=== PATIENT | male | born 1975 | race African-American/Black ===

== ENCOUNTER 2018-07-15 07:00 | Emergency (ER) | payer OTHER ==
[~2018-07-15] VITALS: Ht 182.9 cm; Wt 81.6 kg
[2018-07-15 07:04] VITALS: BP 163/75
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
[2018-07-15] MEDS ORDERED: Augmentin 875mg Tab ORAL ONE (07:15)
[2018-07-15] MEDS ORDERED: Tetanus/Diptheria/Pertussis IM ONE (07:15)
[2018-07-15] MEDS ORDERED: HYDROcodone/Acetamin 5/325 tab PO ONE (07:15)
[2018-07-15] MEDS ORDERED: Bacitracin Oint UD TOPIC ONE (07:15)
--- NOTE | 2018-07-15 08:00 | NUR ---
ED Nurse Note: RIGHT 3RD DIGIT WAS CLEANED, BACITRICIN AND DRY DRESSING APPLIED PER 'S ORDER.
[2018-07-15] MEDS ORDERED: NORCO 5-325 TA1 EACH ORAL (08:18)
[2018-07-15] MEDS ORDERED: AUGMENTIN 875-1 EAC1 ORAL (08:18)
[2018-07-15] MEDS ORDERED: BACITRACIN15 GM TOPIC (08:18)
[2018-07-15] MEDS ORDERED: IBUPROFEN600 MG ORAL (08:18)
--- NOTE | 2018-07-15 08:24 | Diagnostic Imaging Report ---
EXAM: XR Right Hand Complete, 3 or More Views CLINICAL HISTORY: PAIN TECHNIQUE: Frontal, lateral and oblique views of the right hand. COMPARISON: No relevant prior studies available. FINDINGS: Bones/joints: Unremarkable. No acute fracture. No dislocation. Soft tissues: Query distal third digit soft tissue laceration. No radiopaque foreign body. IMPRESSION: 1. Query distal third digit soft tissue laceration. 2. No fracture or malalignment. Joint spaces are well-maintained.
[2018-07-15 08:32] VITALS: BP 163/75
--- NOTE | 2018-07-15 08:33 | NUR ---
ED Nurse Note: Pt cleared DC by Dr. duncan. Pt is A/Ox4, VSS, DC instruction and prescriptions given, pt verbalized understanding. ID wristband removed. All belongings given to pt. Pt ambulated out of ER with steady gait.
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
== END 2018-07-15 08:40 | disposition home or self-care (01) ==
LOC: EMR 07:22 → EEVIPCON 07:22 → EMR 08:40
DX: S60.472A Other superficial bite of right middle finger, initial encounter (principal); Y04.1XXA Assault by human bite, initial encounter; Y93.F9 Activity, other caregiving; Y92.230 Patient room in hospital as the place of occurrence of the external cause; Y99.0 Civilian activity done for income or pay; Z23 Encounter for immunization
CPT/HCPCS: 90471; 90715; 99283